=== PATIENT | male | born 1970 | race Caucasian/White ===

== ENCOUNTER 2016-06-15 09:17 | Observation (INO) | payer MEDICAID ==
[~2016-06-15] VITALS: Ht 175.3 cm; Wt 69.7 kg
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
--- NOTE | ~2016-06-15 | DS ---
PATIENT'S NAME: NAVID GERMAIN [facility] AGE: 46 Y [address] ROOM: [place] [address] LOCATION: GPCU ADMIT DATE: 06/15/2016 Discharge Summary DISCHARGE DATE: 06/16/2016 FAMILY PHYSICIAN: Physician, Unknown ATTENDING PHYSICIAN: Davis Colbert V PRINCIPAL DIAGNOSES: 1. Seizure. 2. Acute encephalopathy. 3. History of traumatic brain injury. 4. Depression. 5. Anxiety. HOSPITAL COURSE: A 46-year-old gentleman with a past medical history of traumatic brain injury, resident of a homeless care home, was brought in by squad yesterday to the emergency department after he had a convulsive episode. In the emergency department, CAT scan of the head was done, which was negative for any acute changes but did show old changes of craniotomy as well as encephalomalacia. Initial lab work did show metabolic acidosis secondary to lactic acid and high prolactin level, which was consistent with seizure activity. He was admitted in the hospital, and he was volume resuscitated with normalization of all his labs. Neurology was consulted, and they recommended Dilantin and a 4-week followup. He is being loaded with intravenous Dilantin, and then he will be discharged today on oral Dilantin. DIET: No restriction on the diet. DISCHARGE MEDICATIONS: 1. Klonopin 0.5 mg p.o. 4 times daily. 2. Duloxetine 60 mg p.o. every day. 3. Magnesium oxide 400 mg p.o. every day with food. 4. Seroquel 200 mg p.o. every night with bedtime. 5. Dilantin 100 mg p.o. t.i.d. ACTIVITY: No swimming or driving. FOLLOWUP: Follow up with Neurology in 4 weeks. DISCHARGE CONDITION: Stable. AILCIA COREY MD PATIENT'S NAME: NAVID GERMAIN [facility] AGE: 46 Y [address] ROOM: [place] [address] LOCATION: GPCU ADMIT DATE: 06/15/2016 Discharge Summary DISCHARGE DATE: 06/16/2016 FAMILY PHYSICIAN: , Debby ATTENDING PHYSICIAN: Davis Colbert V MICHAEL/glenl /[id number] d: 06/17/16 0308 t: 06/20/16 1212, DISCHARGE SUMMARY
--- NOTE | ~2016-06-15 | HP ---
PATIENT'S NAME: NAVID CABRERA [facility] AGE: 46 Y [address] ROOM: [place] [address] LOCATION: GPCU ADMIT DATE: 06/15/2016 History & Physical DISCHARGE DATE: FAMILY PHYSICIAN: PHYSICIAN, UNKNOWN ATTENDING PHYSICIAN: MALIK BLAIR V DATE OF SERVICE: CHIEF COMPLAINT: Likely seizures. HISTORY OF PRESENT ILLNESS: This is obtained from the ER provider as the patient is not a very good historian. He is a 46-year-old male who carries a past medical history of traumatic brain injury and seizures, who was noted to be [facility]. He was transported to [facility] by the Paramedics. En route, the patient was extremely combative and disorganized. Eventually once he was transferred to the ER. The seizures stopped and he became appropriate. He did receive some Ativan, though this was just to calm him down. The patient unfortunately is a very poor historian and has some psychiatric illness for which he followed up for at [facility]. He told me that he is supposed to be on multiple medications and clonazepam as one of them and he has not taken it in 2-3 days. At this point, he denies any nausea, vomiting, chest pain, shortness of breath, or palpitations. REVIEW OF SYSTEMS: All systems have been reviewed and negative aside from pertinent positives mentioned above. PAST MEDICAL HISTORY: This is incomplete due to poor history provided by the patient. Traumatic brain injury, seizure, and psychiatric illness. SURGICAL HISTORY: The patient denies. CURRENT MEDICATIONS ARE: Clonazepam, other ones are unknown. FAMILY HISTORY: The patient does not provide. PATIENT'S NAME: NAVID CABRERA [facility] AGE: 46 Y [address] ROOM: [address] [address] LOCATION: GPCU ADMIT DATE: 06/15/2016 History & Physical DISCHARGE DATE: FAMILY PHYSICIAN: PHYSICIAN, UNKNOWN ATTENDING PHYSICIAN: MALIK BLAIR V SOCIAL HISTORY: He endorses approximately half a pack of cigarettes smoke today, but denies any other toxic habits. PHYSICAL EXAMINATION: VITAL SIGNS: At this point, his blood pressure 119/56, heart rate is in 90s, saturating 96% on room air, respirations are 16, and he is afebrile. GENERAL: Appears as unkempt, poorly smelling middle-aged male, in no acute distress. PSYCHIATRIC: Significant for avoidance of eye contact and a very flat affect, but seems to have some preserved cognition and depressed mood. NEUROLOGIC: Grossly nonfocal. EYES: Show pupils are equal and reactive to light. There is no nystagmus. LYMPHATIC: Shows no cervical lymphadenopathy. ENDOCRINE: No thyromegaly. LUNGS: Clear to auscultation. HEART: Rate is regular. No appreciable murmurs, gallops, or rubs. GI: Abdomen is soft, nontender, nondistended. : Reveals no costovertebral angle tenderness. VASCULAR: 2+ pedal pulses. SKIN: Shows dense crusting/lichenification of the skin over his lower extremities. LABORATORY DATA: Studies from the ER significant for ABG showing pH 7.07, pCO2 25, bicarb is 7.2, saturating 99%. Lactate 115. Potassium 3.6. Bicarb is 9, glucose 130. Anion gap is 24, calcium 8.4, creatinine is 1.8. Ammonia is 230. TSH is 5.63. Prolactin is 95.8. White count is 12.6. Procalcitonin is negative. Urinalysis is significant for some wbc's and rbc's. IMAGING STUDIES: Reviewed. CT scan shows remote area of encephalomalacia at the bilateral frontal lobes and left temporal lobe. Chest x-ray is unremarkable. ASSESSMENT AND PLAN: This is a 46-year-old male who will be admitted with, 1. Most likely a seizure likely related to clonazepam withdrawal. We will get his current medication doses and restart him on clonazepam. We will monitor him in the neurotrauma unit. We will decide on further course of action, once we entailed with more past medical history on him. 2. Metabolic acidosis/lactic acidosis. This is likely related to a protracted seizure episode. At this point, the patient actually feels quite comfortable and nontoxic. We will recheck his ABG and lactate at the end of day to make sure those normalized though at this point, his PATIENT'S NAME: NAVID CABRERA [facility] AGE: 46 Y [address] ROOM: [place] [address] LOCATION: GPCU ADMIT DATE: 06/15/2016 History & Physical DISCHARGE DATE: FAMILY PHYSICIAN: PHYSICIAN, UNKNOWN ATTENDING PHYSICIAN: MALIK BLAIR V appearance is inconsistent with the lab results stated above as those up from earlier in the morning. 3. Acute kidney injury. We will hydrate the patient and follow up his renal function. 4. Psychiatric illness. We will request his documentation from Sae[facility] Math[facility]. 5. Elevated ammonia level. This is puzzling and we will repeat an ammonia level as well as right upper quadrant ultrasound to rule out cirrhosis. 6. Additional management will depend on clinical course. Time dedicated to the patient's encounter is 35 minutes. MD CHRISTIANO SLAUGHTER/danny /[id number] D: T: HISTORY & PHYSICAL
--- NOTE | ~2016-06-15 | NDGEN ---
PATIENT'S NAME: NAVID GERMAIN [facility] AGE: 46 Y [address] ROOM: [address] [address] [facility] ADMIT DATE: 06/15/2016 Neurodiagnostics DISCHARGE DATE: FAMILY PHYSICIAN: PHYSICIAN, UNKNOWN ATTENDING PHYSICIAN: MALIK BLAIR V PROCEDURE: ELECTROENCEPHALOGRAM DATE OF PROCEDURE: 06/16/2016 TEST: TECH: CLINICAL DIAGNOSIS: DURATION OF EE minutes. REASON FOR EEG: Possible seizures. CLINICAL HISTORY: The patient is a 46-year-old male who has a past medical history of traumatic brain injury and seizures, and was noted to have convulsive activity at a homeless custodial. EEG FINDINGS: The patient is awake for the majority of the EEG. During the awake portions of EEG somewhat sharply contoured, posterior background was seen with frequencies of up to 9-10 Hz. The background reveals physiologically as the rhythmical waxing and waning. It is attenuated by eye opening. Activation procedures included photic stimulation between 3-30 Hz, which did not show any abnormalities. CLASSIFICATION: Normal, awake, asleep, 10/20 scalp electrodes. IMPRESSION: This EEG is within normal limits. No epileptiform discharges or EEG seizures were seen during this recording. MD STEF PEREIRA/danny /[id number] dtt: 06/19/16 0622 KELLY RAM MOHAN R. dtd: 06/16/16 1537
[2016-06-15 09:42] LABS: HEMATOCRIT 40.4 % (37.0-53.0); HEMOGLOBIN 13.5 g/dL (12.0-17.0); MCH 31.5 pg (27.0-34.0); MCHC 33.4 gm/dL (32.0-36.5); MCV 94.2 fl (83.0-98.0); MPV 9.8 fl (9.4-12.4); PLATELET COUNT 263 K/uL (150-450); RBC 4.29 M/uL (4.00-6.00); RDW-CV 13.8 % (11.9-14.6); WBC 12.6 K/uL (4.0-11.0)
[2016-06-15 09:44] LABS: BICARBONATE 7.2 mmol/L (18.0-23.0); PCO2 25 mmHg (35-45); PO2 155 mmHg (80-90)
[2016-06-15 09:47] LABS: LACTATE > 15.0 mEq/L (0.50-1.60)
[2016-06-15 09:48] LABS: PROTIME 10.2 SECONDS (9.6-11.1); PTT 27 SECONDS (25-32)
[2016-06-15 10:10] LABS: BILIRUBIN URINE NEGATIVE (NEGATIVE); BLOOD URINE 50 /UL (NEGATIVE); COLOR URINE YELLOW (YELLOW); GLUCOSE URINE NEGATIVE (NEGATIVE); KETONE URINE 15 mg/dL (NEGATIVE); LEUKOCYTES URINE 25 /UL (NEGATIVE); NITRITE URINE NEGATIVE (NEGATIVE); PROTEIN URINE 30 mg/dL (NEGATIVE); SPEC GRAVITY URINE 1.025 (1.003-1.035); TURBIDITY URINE CLEAR (CLEAR); UROBILINOGEN URINE 1 mg/dL (NORMAL)
[2016-06-15 10:10] LABS: ALK PHOS 143 IU/L (33-138); ALT 16 IU/L (12-78); AST 17 IU/L (10-40); BLOOD UREA NITROGEN 14 mg/dL (6-24); CALCIUM 8.2 mg/dL (8.5-10.5); CHLORIDE 104 mMol/L (96-110); CPK 142 IU/L (35-332); CREATININE 1.8 mg/dL (0.6-1.3); ESTIMATED GFR (MDRD EQUATION) 41; POTASSIUM 3.6 mMol/L (3.7-5.1); SODIUM 140 mMol/L (135-145); TOTAL BILIRUBIN 0.5 mg/dL (0.0-1.5); TOTAL PROTEIN 7.9 g/dL (6.0-8.4)
[2016-06-15 10:16] LABS: ABSOLUTE NEUTROPHIL CT (ANC) 4.9 K/uL (1.4-9.0); LYMPHOCYTE # 6.4 K/uL (0.8-4.0); LYMPHOCYTE % 51 %; SEGMENTED NEUTROPHIL # 4.9 K/uL (1.4-9.0); SEGMENTED NEUTROPHIL % 39 %
[2016-06-15 10:17] LABS: BACTERIA URINE NEGATIVE (NEGATIVE); EPITHELIAL URINE RARE #/HPF (NEGATIVE); RBC URINE 20-50 #/HPF (NEGATIVE)
[2016-06-15 10:17] LABS: ANION GAP 30.6 (10.0-19.0); CO2 9 mMol/L (22-32)
[2016-06-15 10:28] LABS: BARBITURATE NEGATIVE (NEGATIVE); COCAINE NEGATIVE (NEGATIVE); OPIATES NEGATIVE (NEGATIVE)
[2016-06-15 10:36] LABS: AMPHETAMINE NEGATIVE (NEGATIVE)
[2016-06-15] MEDS ORDERED: QUETIAPINE FUM200 MG PO (12:27)
[2016-06-15] MEDS ORDERED: PROZAC20 MG PO (12:28)
[2016-06-15] MEDS ORDERED: KLONOPIN0.5 MG PO (12:29)
[2016-06-15] MEDS ORDERED: MAG-OX-400(241400 MG PO (12:30)
[2016-06-15] MEDS ORDERED: PROZAC40 MG PO (12:32)
[2016-06-15 16:22] LABS: BICARBONATE 23.2 mmol/L (18.0-23.0); PCO2 45 mmHg (35-45); PO2 35 mmHg (80-90)
[2016-06-15 16:23] LABS: BASOPHIL # 0.1 K/uL (0.0-0.2); BASOPHIL % 0.6 %; EOSINOPHIL # 0.1 K/uL (0.0-0.5); EOSINOPHIL % 0.7 %; HEMATOCRIT 35.8 % (37.0-53.0); HEMOGLOBIN 12.4 g/dL (12.0-17.0); IMMATURE GRANULOCYTE # 0.1 K/uL (0.0-0.3); IMMATURE GRANULOCYTE % 0.5 %; LACTATE 1.3 mEq/L (0.50-1.60); LYMPHOCYTE # 2.7 K/uL (0.8-4.0); LYMPHOCYTE % 26.6 %; MCH 31.5 pg (27.0-34.0); MCHC 34.6 gm/dL (32.0-36.5); MCV 90.9 fl (83.0-98.0); MONOCYTE # 0.7 K/uL (0.0-1.0); MONOCYTE % 6.6 %; MPV 9.4 fl (9.4-12.4); NEUTROPHIL # (ANC) 6.5 K/uL (1.4-9.0); NRBC % 0 /100WBC (0-0.00); PLATELET COUNT 212 K/uL (150-450); RBC 3.94 M/uL (4.00-6.00); RDW-CV 13.5 % (11.9-14.6)
[2016-06-15 16:31] LABS: INR - (THERAPEUTIC) 0.9 (0.9-1.1); PROTIME 9.8 SECONDS (9.6-11.1); PTT 25 SECONDS (25-32)
[2016-06-15 16:41] LABS: ALBUMIN 3.6 gm/dL (3.5-5.0); ALK PHOS 122 IU/L (33-138); ALT 20 IU/L (12-78); ANION GAP 12.4 (10.0-19.0); AST 49 IU/L (10-40); BLOOD UREA NITROGEN 10 mg/dL (6-24); CALCIUM 7.9 mg/dL (8.5-10.5); CHLORIDE 111 mMol/L (96-110); CO2 22 mMol/L (22-32); CREATININE 1.2 mg/dL (0.6-1.3); POTASSIUM 3.4 mMol/L (3.7-5.1); SODIUM 142 mMol/L (135-145); TOTAL PROTEIN 6.9 g/dL (6.0-8.4)
--- NOTE | 2016-06-15 16:42 | NUR ---
y Significant Event: pt arrived to ER from [facility]. Had seizure this am and became confused/combative. US done of abd.liver. Pt is to be on seizure precautions so pads ord for bed. Bm today. Pt uses urinal well. Alert/oriented and pleasant, alittle forgetful. No c/o pain. HR down 49-60s told we are to watch. Labs at 1600, to call Filemon taylor. Follow up:
[2016-06-15 16:44] LABS: ESTIMATED GFR (MDRD EQUATION) > 60; TOTAL BILIRUBIN 0.3 mg/dL (0.0-1.5)
--- NOTE | 2016-06-16 04:36 | NUR ---
Pt a/o x3-4. forgetful on occasion. Stayed in bed all noc. voids per urinal. vss on ra, afebrile. no s/sx of seizure. no changes in neuro status. NS at 100 to [facility]FA. Plan: ?dc [facility]
--- NOTE | 2016-06-16 11:46 | NUR ---
Introduced self and CM role to Emile. [employer] administration internship Ludmila watkins., Emile tells me that he lives at [facility] here in [place] and has lived there since 2014. He tells me that he plans on returning there when he is able to do so. I inquired about his medications and if he was going to have money to fill them when he was dismissed. He tells me he has some money and will be able to fill them. He gets them filled at [facility]. He also tells me that he see's a counselor at [facility] once a month that usually helps him with medications as well. Emile has an appointment there at the beginning of next month with them. He also states he is working with Kelley Bradley at [facility] to get his social security/disability paperwork all completed. I asked him if he would be able to get to [facility] and to fill his medications once he was dismissed from here. He states he will find a ride from someone at [facility] or someone at [facility]. I gave him phone numbers for both of these places so he could call them when he was ready to leave. He denies any other questions, needs or concerns. Updated PARI Newberry to all the above. Let her know to call me if anything should change or if he needed a taxi voucher upon dismissal. Left my name on his whiteboard for future reference if needed. Will continue to follow and assist. Plan for return back to [facility].
[2016-06-16] MEDS ORDERED: DILANTIN100 MG PO (15:48)
--- NOTE | 2016-06-16 17:49 | NUR ---
DISM. NOTE: AT 1650: REVIEW OF HOMEMEDS AND NEW MEDS WITH HANDOUTS AND SIDE EFFECTS DISCUSSED. PRESCRIPTION GIVEN. DIET/ ACTIVITY FOLLOW UP APPT. PATIENT VOICED UNDERSTANDING
[2016-07-24] MEDS ORDERED: PROZAC10 MG PO (21:48)
[2016-07-24] MEDS ORDERED: KEPPRA500 MG PO (21:49)
[2016-07-25] MEDS ORDERED: MAG-OX-400(241400 MG PO (14:50)
== END 2016-06-16 18:00 | disposition disaster alternative care site (69) ==
LOC: GMED 09:17 → GPCU 11:38
PROVIDERS: Emergency Medicine; ADMIT Internal Medicine
DX: G93.49 Other encephalopathy (principal); R56.9 Unspecified convulsions; F32.9 Major depressive disorder, single episode, unspecified; Z87.820 Personal history of traumatic brain injury; R41.82 Altered mental status, unspecified; F41.9 Anxiety disorder, unspecified; N17.9 Acute kidney failure, unspecified; E87.2 Acidosis; F17.210 Nicotine dependence, cigarettes, uncomplicated; Z79.899 Other long term (current) drug therapy
CPT/HCPCS: G0480; J1165; J2060; J7030; J7050

== ENCOUNTER → 2016-06-15 | Outpatient (CLI) | payer MEDICAID ==
[~2016-06-15] MED LIST: DILANTIN100 MG PO; KEPPRA500 MG PO; KLONOPIN0.5 MG PO; MAG-OX-400(241400 MG PO; PROZAC10 MG PO; PROZAC20 MG PO; PROZAC40 MG PO; QUETIAPINE FUM200 MG PO
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
== END | disposition disaster alternative care site (69) ==
LOC: GAMB 09:02
DX: R46.2 Strange and inexplicable behavior (principal); R56.9 Unspecified convulsions
CPT/HCPCS: A0425; A0429